=== PATIENT | female | born 1975 | race Caucasian/White ===

== ENCOUNTER 2018-05-04 12:13 | Outpatient (CLI) | payer OTHER | END 2018-05-04 12:20 | disposition home or self-care (01) | LOC: MAMO-SONO 12:13 | DX: Z12.31 Encounter for screening mammogram for malignant neoplasm of breast (principal); N64.89 Other specified disorders of breast; N64.4 Mastodynia; N60.11 Diffuse cystic mastopathy of right breast ==

== ENCOUNTER 2019-05-06 10:00 | Outpatient (CLI) | payer OTHER | END 2019-05-06 10:05 | disposition home or self-care (01) | LOC: MAMO-SONO 10:00 | DX: Z12.31 Encounter for screening mammogram for malignant neoplasm of breast (principal); N60.11 Diffuse cystic mastopathy of right breast; N64.4 Mastodynia; E04.8 Other specified nontoxic goiter ==